=== PATIENT | female | born 1965 | race Caucasian/White ===

== ENCOUNTER 2018-12-22 16:40 | Inpatient (IN) | payer MEDICAID, OTHER ==
[~2018-12-22] VITALS: Ht 165.1 cm; Wt 73.0 kg
[2018-12-22] MEDS ORDERED: SODIUM CHLORIDE 0.9% 1000ML BAG (SEPSIS BOLUS) IV ONE ×2 (17:00→21:15)
[2018-12-22] MEDS ORDERED: LORAZEPAM 2MG/ML CPJ IV ONE ×5 (17:00→22:30)
[2018-12-22 17:45] LABS: BASOPHILS % 0.2 % (0.0-2.0); EOSINOPHILS % 1.2 % (0.0-5.0); HEMATOCRIT. 35.1 % (36.0-48.0); HEMOGLOBIN. 11.8 g/dL (12.0-16.0); MEAN CORPUSCULAR HEMOGLOBIN 30.4 pg (28.0-32.0); MEAN CORPUSCULAR VOLUME 90.1 fL (81.0-99.0); MEAN PLATELET VOLUME 7.8 fl (7.4-10.4); MONOCYTES % 5.9 % (2.0-8.0); NEUTROPHILS % 71.7 % (40.0-76.0); PLATELET 229 x1000/uL (130-400); RED CELL DISTRIBUTION WIDTH 13.1 % (11.6-14.6)
[2018-12-22 17:50] LABS: CHLORIDE 105 mEq/L (98-107)
[2018-12-22 17:55] LABS: PROTHROMBIN TIME 10.3 sec (9.6-11.0)
[2018-12-22 17:58] LABS: ETHANOL BLOOD < 10 mg/dL
[2018-12-22 18:06] LABS: CREATINE KINASE 156 IU/L (26-192)
[2018-12-22 19:44] LABS: CLARITY URINE CLOUDY (CLEAR); COLOR URINE YELLOW (YELLOW); KETONES URINE NEGATIVE (NEGATIVE); LEUKOCYTE ESTERASE URINE 1+ (NEGATIVE); NITRITE URINE NEGATIVE (NEGATIVE); OCCULT BLOOD URINE NEGATIVE (NEGATIVE); PROTEIN URINE NEGATIVE (NEGATIVE); SPECIFIC GRAVITY URINE 1.014 (1.005-1.030); UROBILINOGEN URINE 0.2 E.U./dL (0.2-1.0)
[2018-12-22] MEDS ORDERED: ACYCLOVIR INJ 750 MG in DEXT 5% WATER 100 ML IV STA (20:16)
[2018-12-22 20:27] LABS: *AMPHETAMINES SCREEN URINE NEGATIVE (NEGATIVE); *BARBITURATES SCREEN URINE NEGATIVE (NEGATIVE); *BENZODIAZEPINES SCREEN URINE PRESUMTIVE POSITIVE (NEGATIVE); *COCAINE SCREEN URINE NEGATIVE (NEGATIVE)
[2018-12-22 20:28] LABS: CANNABINOID URINE SCREEN NEGATIVE (NEGATIVE); METHADONE URINE SCREEN NEGATIVE (NEGATIVE); OPIATES URINE SCREEN PRESUMTIVE POSITIVE (NEGATIVE); PHENCYCLIDINE URINE SCREEN NEGATIVE (NEGATIVE)
[2018-12-22] MEDS ORDERED: CEFTRIAXONE 2 G PREMIX 50 ML IV ONE (20:30)
[2018-12-22] MEDS ORDERED: LIDOCAINE HCL/PF 1% 10 MG/ML 5ML VIAL IJ ONE (20:30)
[2018-12-22] MEDS ORDERED: ACETAMINOPHEN 650MG SUPP PR ONE (20:30)
[2018-12-22] MEDS ORDERED: DEXAMETHASONE 10 MG/ML VIAL IV ONE (20:30)
[2018-12-22] MEDS ORDERED: VANCOMYCIN 1 G PREMIX 200 ML IV SCH (20:30)
[2018-12-23 12:00] VITALS: BP 119/75
[2018-12-23 12:29] VITALS: BP 119/75
[2018-12-23 16:00] VITALS: BP 130/70
[2018-12-23] MEDS ORDERED: DOCUSATE SODIUM 100MG CAPSULE PO PRN (18:45)
[2018-12-23] MEDS ORDERED: MAGNESIUM/ALUMINUM HYDROXIDE/SIMETHICONE 30ML UDC PO PRN (18:45)
[2018-12-23] MEDS ORDERED: ACETAMINOPHEN 325MG TABLET PO PRN (18:45)
[2018-12-23] MEDS: OXYCODONE HCL 5MG TABLET PO PRN (19:48)
[2018-12-23 20:00] VITALS: BP 121/78
[2018-12-23] MEDS: BUPROPION HCL 150MG SR TABLET PO SCH (21:25)
[2018-12-23] MEDS: DIAZEPAM 5 MG TABLET PO SCH (21:26)
[2018-12-23] MEDS: MELOXICAM 7.5MG TABLET PO SCH (21:26)
[2018-12-23] MEDS: GABAPENTIN 400MG CAPSULE PO SCH (21:26)
[2018-12-23] MEDS: LEVOFLOXACIN 500MG PREMIX 100 ML IV SCH (21:49)
[2018-12-24] VITALS: BP 121/73
[2018-12-24 04:00] VITALS: BP 118/72
[2018-12-24] MEDS: OXYCODONE HCL 5MG TABLET PO PRN ×3 (06:46→20:15)
[2018-12-24 08:00] VITALS: BP 110/70
[2018-12-24] MEDS: BUPROPION HCL 150MG SR TABLET PO SCH (09:13)
[2018-12-24] MEDS: MELOXICAM 7.5MG TABLET PO SCH (09:14)
[2018-12-24 12:00] VITALS: BP 113/76
[2018-12-24 16:00] VITALS: BP 124/77
[2018-12-24 20:00] VITALS: BP 121/72
[2018-12-24] MEDS: LEVOFLOXACIN 500MG PREMIX 100 ML IV SCH (20:14)
[2018-12-24] MEDS: DIAZEPAM 5 MG TABLET PO SCH (22:01)
[2018-12-24] MEDS: GABAPENTIN 400MG CAPSULE PO SCH (22:02)
[2018-12-25] VITALS: BP_SYST 114; BP_SYST 125; BP_DIAS 62; BP_DIAS 66
[2018-12-25 04:00] VITALS: BP 114/66
[2018-12-25 08:00] VITALS: BP 114/70
[2018-12-25] MEDS: MELOXICAM 7.5MG TABLET PO SCH (08:23)
[2018-12-25] MEDS: BUPROPION HCL 150MG SR TABLET PO SCH (08:23)
[2018-12-25] MEDS: OXYCODONE HCL 5MG TABLET PO PRN ×2 (08:24→16:15)
[2018-12-25 12:00] VITALS: BP 130/71
[2018-12-25 16:00] VITALS: BP 128/71
[2018-12-25 17:40] VITALS: BP 128/71
== END 2018-12-25 18:10 | disposition home or self-care (01) | DRG 720 ==
LOC: ER 16:40 → 5WST 21:04 → CANRESERV 12-23 08:26 → ENRESERV 12-23 08:26 → EDBEDREQSVC 12-23 08:57 → ENRESERV 12-23 09:32 → 5WST 12-23 13:01
PROVIDERS: ADMIT Internal Medicine Pulmonary Disease; ATTEND Internal Medicine Pulmonary Disease
DX: A41.9 Sepsis, unspecified organism (principal); G93.41 Metabolic encephalopathy; M41.9 Scoliosis, unspecified; G31.89 Other specified degenerative diseases of nervous system; F32.9 Major depressive disorder, single episode, unspecified; G89.4 Chronic pain syndrome; N12 Tubulo-interstitial nephritis, not specified as acute or chronic; J32.0 Chronic maxillary sinusitis; Z82.49 Family history of ischemic heart disease and other diseases of the circulatory system; Z79.899 Other long term (current) drug therapy; J32.9 Chronic sinusitis, unspecified
CPT/HCPCS: 36415; 71045; 72100; 80305; 80307; 80320; 80329; 81003; 82140; 82550; 82962; 83605; 84443; 84484; 93005; 97162; 99291; J0133; J0696; J1100; J1956; J2060; J3370; J3490; J7030; J7060; G0480